=== PATIENT | female | born 1945 | race Native Hawaiian/Other Pacific Islander ===

== ENCOUNTER 2016-12-18 13:02 | Outpatient (CLI) | payer OTHER ==
[~2016-12-18 13:02] MED LIST: ACET-689 PO; ALPR0.5T24 PO; ASA LO-DOSE81 MG OR; CITALOPRAM10 MG PO; LISI20TA11 PO; ONDA4TAB3 PO; PROC25SU RE; PROM25TA52 PO; VANCOMYCIN125 MG PO; VERA120T22 PO
[2016-12-18 13:42] LABS: PLATELET COUNT 192 K/uL (152-353)
[2016-12-18 14:03] LABS: POTASSIUM 3.7 mmol/L (3.6-5.2)
== END 2016-12-18 14:05 | disposition home or self-care (01) ==
LOC: LAB 13:02
PROVIDERS: Nurse Practitioner Family
DX: Z00.00 Encounter for general adult medical examination without abnormal findings (principal); I10 Essential (primary) hypertension; E03.8 Other specified hypothyroidism; E78.4 Other hyperlipidemia; R53.83 Other fatigue; R53.81 Other malaise; K21.9 Gastro-esophageal reflux disease without esophagitis; Z79.899 Other long term (current) drug therapy; E55.9 Vitamin D deficiency, unspecified; Z51.81 Encounter for therapeutic drug level monitoring
CPT/HCPCS: 80053; 80061; 82306; 83036; 84436; 84443; 85027

== ENCOUNTER 2017-04-12 13:42 | Outpatient (CLI) | payer OTHER ==
[2017-04-12 14:23] LABS: PLATELET COUNT 123 K/uL (152-353)
[2017-04-12 14:39] LABS: POTASSIUM 3.8 mmol/L (3.6-5.2)
== END 2017-04-12 14:45 | disposition home or self-care (01) ==
LOC: LAB 13:42
PROVIDERS: Nurse Practitioner Family
DX: Z00.00 Encounter for general adult medical examination without abnormal findings (principal); Z79.899 Other long term (current) drug therapy; Z51.81 Encounter for therapeutic drug level monitoring; E78.4 Other hyperlipidemia; K21.9 Gastro-esophageal reflux disease without esophagitis; E03.8 Other specified hypothyroidism; I10 Essential (primary) hypertension; R53.83 Other fatigue
CPT/HCPCS: 80053; 80061; 83036; 84436; 84443; 85027

== ENCOUNTER 2017-08-13 12:45 | Outpatient (CLI) | payer OTHER ==
[2017-08-13 13:01] LABS: PLATELET COUNT 129 K/uL (152-353)
[2017-08-13 14:12] LABS: POTASSIUM 3.3 mmol/L (3.6-5.2)
== END 2017-08-13 18:00 | disposition home or self-care (01) ==
LOC: LAB 12:45 → LABW 12:45
PROVIDERS: Nurse Practitioner Family
DX: E78.4 Other hyperlipidemia (principal); K21.9 Gastro-esophageal reflux disease without esophagitis; E03.8 Other specified hypothyroidism; I10 Essential (primary) hypertension; R53.83 Other fatigue; Z79.899 Other long term (current) drug therapy; Z51.81 Encounter for therapeutic drug level monitoring
CPT/HCPCS: 80053; 80061; 83036; 84436; 84443; 85027

== ENCOUNTER 2017-11-15 15:14 | Outpatient (CLI) | payer OTHER ==
[2017-11-15 15:28] LABS: PLATELET COUNT 144 K/uL (152-353)
[2017-11-15 16:04] LABS: POTASSIUM 3.3 mmol/L (3.6-5.2)
== END 2017-11-15 22:45 | disposition home or self-care (01) ==
LOC: LAB 15:14
PROVIDERS: Nurse Practitioner Family
DX: E78.4 Other hyperlipidemia (principal); K21.9 Gastro-esophageal reflux disease without esophagitis; E03.8 Other specified hypothyroidism; I10 Essential (primary) hypertension; Z51.81 Encounter for therapeutic drug level monitoring; Z79.899 Other long term (current) drug therapy
CPT/HCPCS: 80053; 80061; 83036; 84436; 84443; 85027

== ENCOUNTER 2020-09-09 13:24 | Outpatient (CLI) | payer OTHER | END 2020-09-09 20:51 | disposition home or self-care (01) | LOC: MRI 13:24 | PROVIDERS: ATTEND Nurse Practitioner Family | DX: M54.5 Low back pain (principal); M48.00 Spinal stenosis, site unspecified; T14.8XXA Other injury of unspecified body region, initial encounter ==